=== PATIENT | male | born 1985 | race African-American/Black ===

== ENCOUNTER 2016-12-04 16:05 | Emergency (ER) | payer SELFPAY ==
[~2016-12-04] VITALS: Ht 175.3 cm; Wt 136.4 kg
[~2016-12-04 16:05] MED LIST: COMBISP IH
[2016-12-04] MEDS ORDERED: ALBUTEROL SULFATE 2.5 MG/0.5 ML NEB SOLUTION NEB ONE (16:15)
[2016-12-04] MEDS ORDERED: IPRATROPIUM BROMIDE 0.5 MG/2.5 ML NEB SOLUTION NEB ONE (16:15)
[2016-12-04] MEDS ORDERED: 0.9% SODIUM CHLORIDE 5 ML NEB SOLUTION NEB ONE (16:18)
[2016-12-04 19:59] VITALS: BP 134/77
== END 2016-12-04 20:00 | disposition home or self-care (01) ==
LOC: EMS 16:07
DX: J45.901 Unspecified asthma with (acute) exacerbation (principal)
CPT/HCPCS: 94640; 99283; J7613

== ENCOUNTER 2017-03-27 12:55 | Emergency (ER) | payer MEDICAID ==
[~2017-03-27] VITALS: Ht 175.3 cm; Wt 127.3 kg
[2017-03-27] MEDS: PredniSONE 20 MG TABLET PO ONE (13:26)
[2017-03-27] MEDS: ALBUTEROL SULFATE 5 MG/ML 20 ML NEB SOLN [BULK] NEB ONE (13:46)
[2017-03-27] MEDS: IPRATROPIUM BROMIDE 0.5 MG/2.5 ML NEB SOLUTION NEB ONE (13:46)
[2017-03-27 16:06] VITALS: BP 127/77
[2017-03-27] MEDS: ALBUTEROL SULFATE HFA 90 MCG/PUFF 8 GM INHALER IH ONE (16:23)
== END 2017-03-27 16:58 | disposition home or self-care (01) ==
LOC: EMS 13:00
DX: J45.909 Unspecified asthma, uncomplicated (principal); F12.90 Cannabis use, unspecified, uncomplicated; F17.200 Nicotine dependence, unspecified, uncomplicated
CPT/HCPCS: 94640; 99284; J7512; J7611; 94644; J3535

== ENCOUNTER 2017-04-18 12:28 | Emergency (ER) | payer MEDICAID ==
[~2017-04-18] VITALS: Ht 175.3 cm; Wt 131.5 kg
[2017-04-18] MEDS ORDERED: IPRATROPIUM BROMIDE 0.5 MG/2.5 ML NEB SOLUTION NEB ONE (12:45)
[2017-04-18] MEDS ORDERED: ALBUTEROL SULFATE 2.5 MG/0.5 ML NEB SOLUTION NEB ONE (12:45)
[2017-04-18] MEDS ORDERED: ALBUTEROL SULFATE 5 MG/ML 20 ML NEB SOLN [BULK] NEB ONE (13:15)
[2017-04-18] MEDS ORDERED: PredniSONE 20 MG TABLET PO ONE (13:15)
[2017-04-18 13:49] VITALS: BP 125/73
== END 2017-04-18 13:52 | disposition home or self-care (01) ==
LOC: EMS 12:33
DX: J45.909 Unspecified asthma, uncomplicated (principal); Z76.0 Encounter for issue of repeat prescription; F17.200 Nicotine dependence, unspecified, uncomplicated; F12.90 Cannabis use, unspecified, uncomplicated
CPT/HCPCS: 94640; 99283; 99406; J7613

== ENCOUNTER 2017-07-06 09:27 | Emergency (ER) | payer SELFPAY ==
[~2017-07-06] VITALS: Ht 175.3 cm; Wt 136.4 kg
[2017-07-06] MEDS ORDERED: 0.9% SODIUM CHLORIDE 5 ML NEB SOLUTION NEB ONE (10:14)
[2017-07-06] MEDS ORDERED: IPRATROPIUM BROMIDE 0.5 MG/2.5 ML NEB SOLUTION NEB ONE (10:15)
[2017-07-06] MEDS ORDERED: ALBUTEROL SULFATE 2.5 MG/0.5 ML NEB SOLUTION NEB ONE (10:15)
[2017-07-06] MEDS ORDERED: ALBUTEROL SULFATE HFA 90 MCG/PUFF 8 GM INHALER IH ONE (10:30)
[2017-07-06 10:42] VITALS: BP 132/84
== END 2017-07-06 11:23 | disposition home or self-care (01) ==
LOC: EMS 09:28
DX: J45.901 Unspecified asthma with (acute) exacerbation (principal); F12.10 Cannabis abuse, uncomplicated
CPT/HCPCS: 94640; 99284; J7613; J3535

== ENCOUNTER 2017-09-12 18:17 | Emergency (ER) | payer MEDICAID ==
[~2017-09-12] VITALS: Ht 175.3 cm; Wt 136.4 kg
[2017-09-12] MEDS ORDERED: IPRATROPIUM BROMIDE 0.5 MG/2.5 ML NEB SOLUTION NEB ONE (18:30)
[2017-09-12] MEDS ORDERED: ALBUTEROL SULFATE 2.5 MG/0.5 ML NEB SOLUTION NEB ONE (18:30)
[2017-09-12] MEDS ORDERED: ALBUTEROL SULFATE HFA 90 MCG/PUFF 8 GM INHALER IH ONE (19:00)
[2017-09-12 20:03] VITALS: BP 143/76
== END 2017-09-12 20:06 | disposition home or self-care (01) ==
LOC: EMS 18:18
DX: J45.901 Unspecified asthma with (acute) exacerbation (principal); F12.90 Cannabis use, unspecified, uncomplicated; F17.200 Nicotine dependence, unspecified, uncomplicated
CPT/HCPCS: 94640; 99284; 99406; J7613; J3535

== ENCOUNTER 2017-11-28 06:43 | Emergency (ER) | payer SELFPAY ==
[~2017-11-28] VITALS: Ht 175.3 cm; Wt 136.4 kg
[2017-11-28] MEDS: PredniSONE 20 MG TABLET PO ONE ×2 (07:27→07:37)
[2017-11-28] MEDS ORDERED: IPRATROPIUM BROMIDE 0.5 MG/2.5 ML NEB SOLUTION NEB ONE (07:30)
[2017-11-28] MEDS ORDERED: ALBUTEROL SULFATE 2.5 MG/0.5 ML NEB SOLUTION NEB ONE (07:30)
[2017-11-28 08:15] VITALS: BP 136/77
== END 2017-11-28 08:33 | disposition home or self-care (01) ==
LOC: EMS 06:46
DX: J45.909 Unspecified asthma, uncomplicated (principal); F12.90 Cannabis use, unspecified, uncomplicated
CPT/HCPCS: 94640; 99283; J7512; J7613

== ENCOUNTER 2018-01-09 08:02 | Emergency (ER) | payer MEDICAID ==
[~2018-01-09] VITALS: Ht 175.3 cm; Wt 150.0 kg
[2018-01-09] MEDS ORDERED: PredniSONE 20 MG TABLET PO ONE (09:15)
[2018-01-09] MEDS ORDERED: IPRATROPIUM BROMIDE 0.5 MG/2.5 ML NEB SOLUTION NEB ONE (09:15)
[2018-01-09] MEDS ORDERED: ALBUTEROL SULFATE 2.5 MG/0.5 ML NEB SOLUTION NEB ONE (09:15)
[2018-01-09] MEDS ORDERED: ALBUTEROL SULFATE HFA 90 MCG/PUFF 8 GM INHALER IH ONE (10:00)
[2018-01-09 10:03] VITALS: BP 122/66
== END 2018-01-09 10:04 | disposition home or self-care (01) ==
LOC: EMS 08:06
DX: J45.909 Unspecified asthma, uncomplicated (principal); F12.10 Cannabis abuse, uncomplicated; F17.200 Nicotine dependence, unspecified, uncomplicated
CPT/HCPCS: 94640; 99284; J7512; J7613; J3535

== ENCOUNTER 2018-01-23 06:28 | Emergency (ER) | payer MEDICAID ==
[~2018-01-23] VITALS: Ht 175.3 cm; Wt 136.4 kg
[2018-01-23] MEDS ORDERED: IPRATROPIUM BROMIDE 0.5 MG/2.5 ML NEB SOLUTION NEB ONE ×2 (07:30→08:45)
[2018-01-23] MEDS ORDERED: ALBUTEROL SULFATE 2.5 MG/0.5 ML NEB SOLUTION NEB ONE ×2 (07:30→08:45)
[2018-01-23] MEDS ORDERED: PredniSONE 20 MG TABLET PO ONE (07:30)
[2018-01-23] MEDS ORDERED: 0.9% SODIUM CHLORIDE 5 ML NEB SOLUTION NEB ONE (08:05)
[2018-01-23] MEDS ORDERED: ALBUTEROL SULFATE HFA 90 MCG/PUFF 8 GM INHALER IH ONE (08:45)
[2018-01-23 09:26] VITALS: BP 150/67
== END 2018-01-23 09:27 | disposition home or self-care (01) ==
LOC: EMS 06:28
DX: J45.909 Unspecified asthma, uncomplicated (principal); F17.200 Nicotine dependence, unspecified, uncomplicated; F12.90 Cannabis use, unspecified, uncomplicated
CPT/HCPCS: 94640; 99284; J7512; J7613; J3535

== ENCOUNTER 2018-10-18 06:09 | Emergency (ER) | payer MEDICAID ==
[~2018-10-18] VITALS: Ht 175.3 cm; Wt 131.8 kg
[2018-10-18] MEDS ORDERED: ALBUTEROL SULFATE 2.5 MG/0.5 ML NEB SOLUTION NEB ONE (06:30)
[2018-10-18] MEDS ORDERED: IPRATROPIUM BROMIDE 0.5 MG/2.5 ML NEB SOLUTION NEB ONE (06:30)
[2018-10-18 07:35] VITALS: BP 138/76
== END 2018-10-18 07:41 | disposition home or self-care (01) ==
LOC: EMS 06:09
DX: J45.909 Unspecified asthma, uncomplicated (principal); F12.90 Cannabis use, unspecified, uncomplicated
CPT/HCPCS: 94640

== ENCOUNTER 2019-02-25 17:14 | Emergency (ER) | payer MEDICAID ==
[~2019-02-25] VITALS: Ht 175.3 cm; Wt 57.6 kg
[2019-02-25] MEDS ORDERED: ALBUTEROL SULFATE HFA 90 MCG/PUFF 8 GM INHALER IH ONE (18:45)
[2019-02-25] MEDS ORDERED: IPRATROPIUM BROMIDE 0.5 MG/2.5 ML NEB SOLUTION NEB ONE (18:45)
[2019-02-25] MEDS ORDERED: ALBUTEROL SULFATE 2.5 MG/0.5 ML NEB SOLUTION NEB ONE (18:45)
[2019-02-25 19:59] VITALS: BP 132/80
== END 2019-02-25 20:00 | disposition home or self-care (01) ==
LOC: EMS 17:14
DX: J45.901 Unspecified asthma with (acute) exacerbation (principal); F17.200 Nicotine dependence, unspecified, uncomplicated; F12.90 Cannabis use, unspecified, uncomplicated; Z79.899 Other long term (current) drug therapy
CPT/HCPCS: 94640; 99406; J3535

== ENCOUNTER 2019-11-23 07:03 | Emergency (ER) | payer MEDICAID ==
[~2019-11-23] VITALS: Ht 175.3 cm; Wt 133.0 kg
[2019-11-23] MEDS ORDERED: ALBUTEROL SULFATE HFA 90 MCG/PUFF 8 GM INHALER IH ONE (07:15)
[2019-11-23 07:46] VITALS: BP 144/79
== END 2019-11-23 08:10 | disposition home or self-care (01) ==
LOC: EMS 07:03
DX: J45.901 Unspecified asthma with (acute) exacerbation (principal); F12.90 Cannabis use, unspecified, uncomplicated
CPT/HCPCS: 94640; J3535

== ENCOUNTER 2020-02-06 19:17 | Emergency (ER) | payer MEDICAID ==
[~2020-02-06] VITALS: Ht 175.3 cm; Wt 99.1 kg
[2020-02-06] MEDS ORDERED: ALBUTEROL SULFATE HFA 90 MCG/PUFF 8 GM INHALER IH ONE (22:15)
[2020-02-06] MEDS ORDERED: PredniSONE 20 MG TABLET PO ONE (22:15)
[2020-02-06 22:56] VITALS: BP 132/75
== END 2020-02-06 23:11 | disposition home or self-care (01) ==
LOC: EMS 19:17
DX: J45.909 Unspecified asthma, uncomplicated (principal); F17.200 Nicotine dependence, unspecified, uncomplicated; F12.90 Cannabis use, unspecified, uncomplicated
CPT/HCPCS: 94640; 99283; J7512; J3535

== ENCOUNTER 2020-05-04 13:45 | Emergency (ER) | payer MEDICAID ==
[~2020-05-04] VITALS: Ht 175.3 cm; Wt 131.8 kg
[2020-05-04 14:35] VITALS: BP 116/74
== END 2020-05-04 15:07 | disposition home or self-care (01) ==
LOC: EMS 13:48
DX: J45.909 Unspecified asthma, uncomplicated (principal); Z76.0 Encounter for issue of repeat prescription; F12.90 Cannabis use, unspecified, uncomplicated
CPT/HCPCS: Z7502

== ENCOUNTER 2020-08-08 13:51 | Emergency (ER) | payer MEDICAID ==
[~2020-08-08] VITALS: Ht 177.8 cm; Wt 118.2 kg
[2020-08-08] MEDS ORDERED: ALBUTEROL SULFATE HFA 90 MCG/PUFF 8 GM INHALER IH ONE (17:45)
[2020-08-08] MEDS ORDERED: PredniSONE 20 MG TABLET PO ONE (17:45)
[2020-08-08 18:09] VITALS: BP 128/75
== END 2020-08-08 18:13 | disposition home or self-care (01) ==
LOC: EMS 13:53
DX: J45.909 Unspecified asthma, uncomplicated (principal)
CPT/HCPCS: 94640; 99283; J7512; J3535